=== PATIENT | female | born 1975 | race Caucasian/White ===

== ENCOUNTER 2018-05-02 18:33 | Emergency (ER) | payer SELFPAY ==
[~2018-05-02] VITALS: Ht 172.7 cm; Wt 70.0 kg
[2018-05-02 18:42] VITALS: BP 103/64
[2018-05-02] MEDS ORDERED: ACETAMINOPHEN 500MG TABLET ONE (18:55)
== END 2018-05-03 | disposition left against medical advice (07) ==
LOC: ER 18:33
DX: R42 Dizziness and giddiness (principal); Z53.21 Procedure and treatment not carried out due to patient leaving prior to being seen by health care provider

== ENCOUNTER 2019-07-17 12:07 | Emergency (ER) | payer MEDICARE ==
[~2019-07-17] VITALS: Ht 172.7 cm; Wt 75.0 kg
[2019-07-17 12:08] VITALS: BP 122/78
== END 2019-07-17 12:33 | disposition left against medical advice (07) ==
LOC: ER 12:07
DX: Z53.21 Procedure and treatment not carried out due to patient leaving prior to being seen by health care provider (principal)